=== PATIENT | female | born 1970 | race Caucasian/White ===

== ENCOUNTER → 2017-02-15 | Outpatient (CLI) | payer OTHER | LOC: OD 10:53 | PROVIDERS: ATTEND Obstetrics & Gynecology | DX: Z01.812 Encounter for preprocedural laboratory examination (principal) | CPT/HCPCS: 36415; 86850; 86900; 86901 ==

== ENCOUNTER 2017-02-17 08:06 | Day surgery (SDC) | payer OTHER ==
[2017-02-07 09:58] LABS: HEMOGLOBIN 9.5 g/dL (12.0-15.5); HGB HCT DIFFERENCE -1.5; MEAN CORPUSCULAR HEMOGLOBIN 23.6 pg (27.0-33.4); MEAN CORPUSCULAR HGB CONC 31.7 g/dL (32.0-36.0); MEAN CORPUSCULAR VOLUME 74 fl (80-97); RED BLOOD COUNT 4.04 10^6/uL (3.72-5.28); RED CELL DISTRIBUTION WIDTH 17.3 % (11.5-14.0); WHITE BLOOD COUNT 7.2 10^3/uL (4.0-10.5)
[2017-02-07 10:22] LABS: ANION GAP 12 (5-19); BLOOD UREA NITROGEN 7 mg/dL (7-20); CALCIUM 9.8 mg/dL (8.4-10.2); CARBON DIOXIDE 22 mmol/L (22-30); CHLORIDE 106 mmol/L (98-107); CREATININE RESULT 0.65 mg/dL (0.52-1.25); GLUCOSE 91 mg/dL (75-110); POTASSIUM 4.2 mmol/L (3.6-5.0); SODIUM 140.1 mmol/L (137-145)
[2017-02-07 10:22] LABS: APPEARANCE,URINE SLIGHTLY-CLOUDY; BILIRUBIN,URINE NEGATIVE (NEGATIVE); GLUCOSE, URINE NEGATIVE (NEGATIVE); KETONES,URINE NEGATIVE (NEGATIVE); LEUKOCYTE ESTERASE,URINE NEGATIVE (NEGATIVE); NITRITE,URINE NEGATIVE (NEGATIVE); PROTEIN,URINE NEGATIVE (NEGATIVE); URINE SPECIFIC GRAVITY 1.005; UROBILINOGEN,URINE NEGATIVE mg/dL (<2.0)
[~2017-02-17 08:06] MED LIST: CEFAZOLIN 2 GM/D5W RTU 2 GM/50 ML RTUPB IV PRN; GABAPENTIN 400 MG CAPSULE PO PRN; LACTATED RINGERS 1000 ML IV PRN
[2017-02-17] MEDS ORDERED: ONDANSETRON HCL INJ/PF 4 MG/2 ML SDV ONE (09:51)
[2017-02-17] MEDS ORDERED: DEXAMETHASONE SOD PHOSPHATE INJ 4 MG/1 ML VIAL ONE (09:51)
[2017-02-17] MEDS ORDERED: LIDOCAINE 2% INJ-PF (20 MG/ML) 10 ML AMPUL ONE (09:51)
[2017-02-17] MEDS ORDERED: GLYCOPYRROLATE INJ 0.4 MG/2 ML VIAL ONE (09:51)
[2017-02-17] MEDS ORDERED: VECURONIUM BROMIDE INJ 10 MG VIAL IV ONE (09:51)
[2017-02-17] MEDS ORDERED: SUCCINYLCHOLINE CHLORIDE INJ 200 MG/10 ML VIAL ONE (09:51)
[2017-02-17] MEDS ORDERED: FENTANYL CITRATE INJ/PF 100 MCG/2 ML AMPUL ONE (11:32)
[2017-02-17] MEDS ORDERED: FENTANYL CITRATE INJ/PF 250 MCG/5 ML AMPULE ONE (11:32)
[2017-02-17] MEDS ORDERED: MIDAZOLAM 2 MG/2 ML INJ ONE (11:32)
[2017-02-17] MEDS ORDERED: EPHEDRINE SULFATE INJ 50 MG/1 ML AMPULE ONE (11:32)
[2017-02-17] MEDS ORDERED: ACETAMINOPHEN 100 ML IV ONE (11:33)
[2017-02-17] MEDS ORDERED: MORPHINE SULFATE 10 MG/ML INJ ONE (11:33)
[2017-02-17] MEDS ORDERED: PROPOFOL INJ 200 MG/20 ML VIAL IV ONE (11:33)
[2017-02-17] MEDS: BUPIVACAINE HCL 0.25 % INJ/PF (2.5 MG/1 ML) 30 ML VIAL ONE ×2 (12:38→14:27)
[2017-02-17] MEDS ORDERED: DIPHENHYDRAMINE HCL 50 MG/ML VIAL IV PRN (13:38)
[2017-02-17] MEDS ORDERED: MORPHINE SULFATE 10 MG/ML INJ IV PRN (13:38)
[2017-02-17] MEDS ORDERED: FENTANYL CITRATE INJ/PF 100 MCG/2 ML AMPUL IV PRN ×3 (13:38)
[2017-02-17] MEDS ORDERED: MEPERIDINE HCL/PF INJ 25 MG/1 ML DISP.SYRIN IV PRN (13:38)
[2017-02-17] MEDS ORDERED: PROMETHAZINE HCL INJ 25 MG/1 ML VIAL IV PRN (13:38)
[2017-02-17] MEDS ORDERED: BUPIVACAINE HCL 0.5%-EPI 1:200000 INJ/PF 30 ML VIAL ONE (14:20)
--- NOTE | 2017-02-17 15:13 | PDOC DISCHARGE SUMMARY ---
Discharge Summary (SDC) - Discharge Final Diagnosis: Menorrhagia Fibroid Uterus Pelvic Adhesion Right perineal/inner thigh subcutaneous mass Date of Surgery: 02/17/17 Discharge Date: 02/17/17 Condition: Good Forms: Post Operative Treatment or Instructions: Robotic assisted total laparoscopic hysterectomy, bilateral salpingectomy, lysis of adheasions Cystoscopy Excision of right perineal/right inner thigh subcutaneous mass Referrals: YUDELKA MCNEAL MD [NO LOCAL MD] - (Call [facility] for follow up appt at [phone]. We would like to see you back in the office in 2-3 weeks.) Discharge Diet: As Tolerated Respiratory Treatments at Home: Deep Breathing/Coughing Discharge Activity: Activity As Tolerated, Balance Activity w/Rest, No Lifting/ Push/Pulling - over 25 lbs, Pelvic Rest, Slowly Increase Activity, No tub bath - you may shower Home Care Assistance: None Needed Report the Following to Your Physician Immediately: Shortness of Breath, Increase in Pain, Fever over 101 Degrees, Unusual Bleeding, Redness, Swelling, Drainage-Foul Smelling, Increased Vaginal Bleed
[2017-02-17] MEDS: FENTANYL CITRATE INJ/PF 100 MCG/2 ML AMPUL ONE ×2 (15:33→15:42)
[2017-02-17] MEDS ORDERED: OXYCODONE-ACETAMINOPHEN 5-325 MG TABLET PO PRN (15:35)
[2017-02-17] MEDS ORDERED: ONDANSETRON HCL INJ/PF 4 MG/2 ML SDV IV PRN (15:35)
[2017-02-17 19:51] VITALS: BP 121/64
--- NOTE | 2017-02-18 16:53 | OPERATIVE REPORT E ---
Operative Report NAME: SAIRA FUNES : 1970 AGE: 47Y DATE OF SURGERY: 02/17/2017 ROOM: 211 PREOPERATIVE DIAGNOSES: 1. Menorrhagia and fibroid uterus. 2. Right perineal, inner thigh area subcutaneous mass. POSTOPERATIVE DIAGNOSES: 1. Menorrhagia and fibroid uterus. 2. Right perineal, inner thigh area subcutaneous mass. PROCEDURE: 1. Robotic assisted total laparoscopic hysterectomy, bilateral salpingectomy, and cystoscopy. 2. Excision of subcutaneous mass of the right perineal, right inner thigh area. SURGEON: YUDELKA MCNEAL M.D. MATERIAL LIAISON: Dr. Saad Lobo ANESTHESIA: General. COMPLICATIONS: None. ESTIMATED BLOOD LOSS: 150 mL. URINE OUTPUT: Clear at the end of the procedure. SPECIMENS: Uterus with cervix and bilateral fallopian tubes and subcutaneous mass. FINDINGS: The uterus was mildly enlarged to approximately 12 weeks size with a small approximately 2 cm lower left anterior uterine segment fibroid. Normal appearing right fallopian tube. Adhesions of the left fallopian tube and ovary. Normal appears ovaries. INDICATIONS: This is a 47-year-old female 5, para 4-0-1-4, with a history of 4 vaginal deliveries and a history of heavy uterine bleeding, menorrhagia, and fibroid uterus refractory to medical management. After discussing the risks, benefits, and alternatives including but not limited to observation, further medical management, endometrial ablation, uterine artery embolization, operative hysteroscopy, open abdominal hysterectomy, and total vaginal hysterectomy were discussed with the patient. She elected for the above procedure. PROCEDURE: After the patient was properly consented, she was taken to the operating room where general anesthesia was then introduced with endotracheal intubation. The patient was transferred to a dorsal lithotomy position using adjustable Arpan stirrups and prepped and draped in the usual sterile fashion. A surgical timeout was held. We began with placement of a medium sized V-care uterine manipulator in the typical fashion. Placement of the Junior catheter was also completed. Gloves were changed and we proceeded above where 0.25% plain Marcaine local anesthetic was placed supraumbilically. A 12 mm skin incision was made with the scalpel followed by a Veress needle introduced into the peritoneal cavity with correct placement ascertained by a drop in CO2 pressure to 3 mmHg. The pneumoperitoneum was established to a pressure of 15 mmHg. A 12 mm bladeless trocar was advanced after the Veress needle was removed into the pneumoperitoneum, and immediate visualization with the camera demonstrated an atraumatic entry as well as the above findings. We subsequently placed 2 right and 1 left lateral 8 mm ports following the typical routine of local anesthetic followed by a skin incision followed by placement of the port under direct visualization. With all ports in place, the patient was put in steep Trendelenburg position. The robot was then docked, and I scrub out and proceeded to the robotic console and Dr. Lobo proceeded to the surgical assistant certified port. Pelvic anatomy was inspected and the findings noted above. The ureters were identified by peristalsis in their usual course at the pelvic brim bilaterally. Dissection was begun on the right side using the fenestrated bipolar graspers and the vessel sealer. The round ligament on the right was cauterized and transected. Next, a broad ligament was opened and dissected inferiorly and anteriorly to create the bladder flap which was reduced inferiorly. Next, the fallopian tube was dissected from the tubo-ovarian ligament and the ovary dissected from the uterus by ligating the utero-ovarian ligament. This dissection was continued along the lateral portion of the uterine body to connect with the previously transected round ligament. The broad ligament was then opened further and the uterine artery was dissected out, identified, cauterized, and transected at the area next to the uterine lower segment. Then hugging the uterus during this portion of the surgery, the dissection was continued along the side of the cervix to the top of the coring. The same dissection was completed on the left side with some extra dissection needed to move around the fibroid and the left lower uterine segment. Next, the edge of the V-care cervical cap was identified. The vessel sealer was replaced with monopolar cautery scissors. Colpotomy was initiated with the monopolar scissors and carried around circumferentially until the specimen was free and pulled through the vagina. The vaginal cuff was then closed with a running V-Loc suture of 3-0 Monocryl, incorporating the uterosacral pedicles for support. The pelvis was then irrigated copiously. Hemostasis was noted and FloSeal hemostatic agent was applied to the vaginal cuff and the dissected broad ligament areas. The abdomen was deflated and the robot was undocked, and all the instruments removed but the ports were left in place. The patient was taken out of Trendelenburg and attention was turned to below where cystoscopy was completed in the typical fashion. Bladder was noted to be intact and no visible suture or injury was noted. Bilateral ureteral orifices were noted to have a forceful ureteral jet. The bladder was drained and cystoscopy was completed. At this point gloves were changed and attention was turned back to the abdomen where the ports were removed. The 12 mm port site fascia was closed with 0 Vicryl suture and the skin of the 8 and 12 mm ports were closed with 4-0 Monocryl in a subcuticular fashion, A Dermabond dressing was applied. Next, attention was turned back to the perineum where the subcutaneous mass near the right perineum was notated and infused with 0.5% bupivacaine with epinephrine, local anesthetic, 8 mL. The area over the mass was incised with a scalpel and the fatty and fibrous tissue below dissected with Metzenbaum scissors, removed, and sent to pathology. At this time, hemostasis of the surgical bed was noted. The area was closed with 4-0 Monocryl in subcuticular fashion and Dermabond dressing was applied. Anesthesia was reversed. Sponge, lap, and needle counts were correct at the end of the procedure. The patient was taken to the PACU in stable condition. DICTATING PHYSICIAN: YUDELKA MCNEAL M.D. [id number] PHY#: [id number] ID: [id number] JOB#: [id number] ACCT: [id number] cc:YUDELKA MCNEAL M.D. >
== END 2017-02-17 19:48 | disposition home or self-care (01) ==
LOC: OROUT 08:06 → 2N 16:22 → OROUT 19:48
PROVIDERS: ATTEND Obstetrics & Gynecology
PROC: 0UTC4ZZ Resection of Cervix, Percutaneous Endoscopic Approach (ICD-10-PCS; 2017-02-17)
PROC: 0UT74ZZ Resection of Bilateral Fallopian Tubes, Percutaneous Endoscopic Approach (ICD-10-PCS; 2017-02-17)
PROC: 8E0W4CZ Robotic Assisted Procedure of Trunk Region, Percutaneous Endoscopic Approach (ICD-10-PCS; 2017-02-17)
PROC: 0WBNXZX Excision of Female Perineum, External Approach, Diagnostic (ICD-10-PCS; 2017-02-17)
PROC: 0UT94ZZ Resection of Uterus, Percutaneous Endoscopic Approach (ICD-10-PCS; principal; 2017-02-17 10:30)
DX: N92.0 Excessive and frequent menstruation with regular cycle (principal); D25.9 Leiomyoma of uterus, unspecified; N73.6 Female pelvic peritoneal adhesions (postinfective); L02.215 Cutaneous abscess of perineum; N72 Inflammatory disease of cervix uteri; I10 Essential (primary) hypertension; E55.9 Vitamin D deficiency, unspecified; M10.9 Gout, unspecified; E66.01 Morbid (severe) obesity due to excess calories; F17.210 Nicotine dependence, cigarettes, uncomplicated; Z68.31 Body mass index [BMI] 31.0-31.9, adult; Z79.51 Long term (current) use of inhaled steroids
CPT/HCPCS: 11420; 58571; S2900; 36415; 80048; 81001; 81025; 840; 85027; 88304; 88307; J0131; J0330; J0690; J1100; J2250; J2270; J2405; J2704; J3010; J3490